=== PATIENT | male | born 1960 | race Caucasian/White ===

== ENCOUNTER 2021-03-17 10:18 | Day surgery (SDC) | payer OTHER ==
[~2021-03-17] VITALS: Ht 165.1 cm; Wt 86.7 kg
[~2021-03-17 10:18] MED LIST: ASPIRIN 32325 MG/TAB PO; COREG12.5 MG PO; CRESTOR40 MG PO; DIABETA 5MG5 MG/TAB PO; HCTZ 25MG TAB25 MG PO; LANTUS100 U/ML SQ; LIPITOR 80MG80 MG PO; NEURONTIN600 MG/TAB PO; NITROQUICK0.4 MG SL; NORCO 325 MG-101 TAB PO; NORCO 325 MG-51 TAB PO; ONGLYZA5 MG PO; PLAVIX 75MG TAB75 MG PO; PRINIVIL2.5 MG PO; ZOFRAN ODT4 MG PO; ZOLOFT 100MG100 MG PO
[2021-03-17 13:30] VITALS: BP 100/58; PULSE 70; TEMP 97.7
[2021-03-17 13:31] VITALS: BP 121/67; PULSE 69; TEMP 98.1
[2021-03-17 13:45] VITALS: BP 103/72; PULSE 70
[2021-03-17 14:00] VITALS: BP 125/75; PULSE 67
[2021-03-17 14:15] VITALS: BP 137/73
--- NOTE | 2021-03-17 14:28 | NUR ---
1330 Pt returns from endo procedure via cart and RN assist to [facility]. Pt ambulates from cart to recliner with RN assist. Monitors on and alarms set. Call light within reach. Report received from JENELLE Gooden. Pt alert and oriented. Pt requests coffee, juice, and muffin. Pt denies any pain or nausea. 1345 Pt taking food and drink well. No complications noted. 1425 Discharge instructions given to pt. All questions answered to his satisfaction. Handed to pt are a thank you card and discharge information. 1428 Pt transferred out of the hospital via wheelchair and [facility] assist. 1530 Pt remains with [facility] waiting for ride. They have been in communication, and the pt's ride says he is almost at the hospital.
== END 2021-03-17 14:28 | disposition home or self-care (01) ==
LOC: SDCO 10:18
DX: K21.9 Gastro-esophageal reflux disease without esophagitis (principal); K22.2 Esophageal obstruction; I13.0 Hypertensive heart and chronic kidney disease with heart failure and stage 1 through stage 4 chronic kidney disease, or unspecified chronic kidney disease; N18.30 Chronic kidney disease, stage 3 unspecified; I25.10 Atherosclerotic heart disease of native coronary artery without angina pectoris; I48.91 Unspecified atrial fibrillation; I82.402 Acute embolism and thrombosis of unspecified deep veins of left lower extremity; E11.22 Type 2 diabetes mellitus with diabetic chronic kidney disease; E78.5 Hyperlipidemia, unspecified; M19.90 Unspecified osteoarthritis, unspecified site; G43.909 Migraine, unspecified, not intractable, without status migrainosus; G25.81 Restless legs syndrome; F43.10 Post-traumatic stress disorder, unspecified; F32.9 Major depressive disorder, single episode, unspecified; F41.9 Anxiety disorder, unspecified; Z79.82 Long term (current) use of aspirin; Z79.899 Other long term (current) drug therapy; Z79.84 Long term (current) use of oral hypoglycemic drugs; Z79.891 Long term (current) use of opiate analgesic; Z87.891 Personal history of nicotine dependence; Z95.1 Presence of aortocoronary bypass graft; Z95.0 Presence of cardiac pacemaker
CPT/HCPCS: C1726; J2704; J7030

== ENCOUNTER → 2023-05-23 | Outpatient (CLI) | payer OTHER ==
[~2023-05-23] MED LIST changes: +ALDACTONE 25MG25 M1 PO; +CYMBALTA 20MG20 MG PO; +DESYREL 100MG100 MG PO; +GLUCOPHAGE1000 MG PO; +JARDIANCE10; +LEVEMIR100 U/ML SQ; +NOVOLIN N100 UNIT/1 SQ; +PLAVIX 300MG T300 MG PO; +REQUIP2 MG PO; +TOPROL XL 25MG25 MG PO
== END ==
LOC: COL.RAD 12:41
DX: Z01.89 Encounter for other specified special examinations (principal); M24.859 Other specific joint derangements of unspecified hip, not elsewhere classified; M16.12 Unilateral primary osteoarthritis, left hip

== ENCOUNTER 2023-10-18 10:34 | Day surgery (SDC) | payer OTHER ==
[~2023-10-18] VITALS: Ht 165.1 cm; Wt 79.7 kg
[~2023-10-18 10:34] MED LIST changes: +NS 1,000 ML IV SCH; +Ondansetron 4 MG/2 ML VIAL IV PRN
[2023-10-18] MEDS ORDERED: ASPIRIN 81M81 MG/TA2 PO (11:49)
[2023-10-18] MEDS ORDERED: EFFIENT10 MG PO (11:51)
[2023-10-18] MEDS ORDERED: TYLENOL 325MG325 MG PO (11:58)
[2023-10-18] MEDS ORDERED: SENNA-S 50 MG-81 TAB PO (11:59)
[2023-10-18] MEDS ORDERED: SYNJARDY 12.5-1 EACH PO (11:59)
[2023-10-18] MEDS ORDERED: ATARAX 25MG25 MG/TAB PO (12:00)
[2023-10-18] MEDS ORDERED: DRISDOL50000 IU PO (12:00)
[2023-10-18] MEDS ORDERED: INSULIN AS100 UNIT/2 SQ (12:03)
[2023-10-18] MEDS ORDERED: IMDUR 60MG60 MG/TAB PO (12:04)
[2023-10-18] MEDS ORDERED: LIDODERM 5% PATC1 EA TP (12:05)
[2023-10-18] MEDS ORDERED: ALAVERT10 M1 PO (12:06)
[2023-10-18] MEDS ORDERED: MELATONIN3 M1 PO (12:06)
[2023-10-18] MEDS ORDERED: MULTI VITAMINS1 TAB PO (12:09)
[2023-10-18] MEDS ORDERED: KAPSPARGO SPRIN50 MG PO (12:09)
[2023-10-18] MEDS ORDERED: CRESTOR40 MG PO (12:10)
[2023-10-18] MEDS ORDERED: RANEXA1000 MG PO (12:10)
[2023-10-18] MEDS ORDERED: PRILOTC PO (12:10)
[2023-10-18] MEDS ORDERED: IMITREX100 MG PO (12:11)
[2023-10-18] MEDS ORDERED: FLOMAX 0.40.4 MG/CAP PO (12:11)
[2023-10-18] MEDS ORDERED: DESYREL 100MG100 MG PO (12:12)
[2023-10-18] MEDS ORDERED: ATIVAN 0.50.5 MG/TAB PO (12:13)
[2023-10-18] MEDS ORDERED: Etomidate 20 MG/10 ML VIAL IV ONE (12:17)
[2023-10-18] MEDS ORDERED: DEXTROSE PO (12:18)
[2023-10-18] MEDS ORDERED: INSLANT SQ (12:19)
[2023-10-18] MEDS ORDERED: COZAAR 50MG50 MG/TAB PO (12:19)
[2023-10-18] MEDS ORDERED: METHOTREXA2.5 MG/TAB PO (12:20)
[2023-10-18] MEDS ORDERED: VIIBRYD40 MG PO (12:21)
[2023-10-18] MEDS ORDERED: GLUCOSE PO (12:22)
[2023-10-18 12:44] VITALS: BP 122/72; PULSE 62; TEMP 97.8
[2023-10-18 12:50] VITALS: BP 139/71; PULSE 59; TEMP 97.8
[2023-10-18 13:05] VITALS: BP 143/70; PULSE 63
--- NOTE | 2023-10-18 13:49 | NUR ---
1250- Pt returns from procedure on cart. VSS. IV fluids discontinued. Coffee and muffin given. 1307- Discharge instructions reviewed, questions answered. 1315- IV site removed, pt gets dressed on cart. Pt calls . 1325- Dr. Curtis in to see patient. 1330- Patient reports that his is at the patient entrance. Transfers to w/c with [facility]. Pt to wifes can via w/c at this time. Denies any complaints.
== END 2023-10-18 13:30 | disposition home or self-care (01) ==
LOC: SDCO 10:34
DX: R19.7 Diarrhea, unspecified (principal); K22.2 Esophageal obstruction; Z95.5 Presence of coronary angioplasty implant and graft; Z86.718 Personal history of other venous thrombosis and embolism; Z87.891 Personal history of nicotine dependence; Z79.82 Long term (current) use of aspirin; Z95.1 Presence of aortocoronary bypass graft
CPT/HCPCS: J2704; J7030